=== PATIENT | female | born 1965 | race Caucasian/White ===

== ENCOUNTER 2020-02-24 08:24 | Outpatient (CLI) | payer OTHER, SELFPAY ==
--- NOTE | ~2020-02-24 | MM_ITS ---
EXAMINATION: MM screening rosalva BI w debo HISTORY: Screening mammogram, family history of breast cancer in her sister. TECHNIQUE: Craniocaudal and mediolateral oblique 3-D tomosynthesis images were obtained and synthetic 2-D images were generated. CAD analysis was submitted and interpreted. COMPARISON: 01/31/2019, 01/16/2018, 01/15/2017 BREAST PARENCHYMAL COMPOSITION: There are scattered areas of fibroglandular density. FINDINGS: There is no evidence of suspicious mass, calcification, or architectural distortion to sugg est malignancy in either breast. There has been no suspicious interval change. IMPRESSION: 1. No mammographic evidence of malignancy. 2. Recommend routine screening mammography in one year. BI-RADS Category 1: Negative Reviewed, dictated and finalized at location A. FRAZER
== END 2020-02-24 08:25 | disposition home or self-care (01) ==
LOC: ANHIMG 08:28
PROVIDERS: PCP Family Medicine; Visit Provider Obstetrics & Gynecology
DX: Z12.31 Encounter for screening mammogram for malignant neoplasm of breast (principal)
CPT/HCPCS: 77063; 77067

== ENCOUNTER 2022-04-21 09:25 | Outpatient (CLI) | payer OTHER, SELFPAY ==
--- NOTE | ~2022-04-21 | MM_ITS ---
EXAMINATION: MM screening rosalva BI w debo HISTORY: Screening mammogram, family history of breast cancer in her sister. TECHNIQUE: Craniocaudal and mediolateral oblique 3-D tomosynthesis images were obtained and synthetic 2-D images were generated. CAD analysis was submitted and interpreted. COMPARISON: 02/24/2020, 01/31/2019, 01/16/2018 BREAST PARENCHYMAL COMPOSITION: There are scattered areas of fibroglandular density. FINDINGS: RIGHT BREAST: An asymmetry is present in the middle/posterior third of the breast in line with the ni pple axis on the mediolateral oblique view. LEFT BREAST: No suspicious mass, calcification, or architectural distortion are identified to suggest malignancy. There has been no suspicious interval change. IMPRESSION: 1. Right breast asymmetry. 2. Additional mammographic views and possible breast ultrasound are recommended. BI-RADS Category 0: Incomplete: Needs additional imaging evaluation. Reviewed, dictated and finalized at location A. L MAIL CONTRACTOR IMPRESSION: 1. Right breast asymmetry. 2. Additional mammographic views and possible breast ultrasound are recommended . BI-RADS Category 0: Incomplete: Needs additional imaging evaluation.
== END 2022-04-21 09:26 | disposition home or self-care (01) ==
LOC: ANHIMG 09:26
PROVIDERS: PCP Family Medicine; Visit Provider Obstetrics & Gynecology
DX: Z12.31 Encounter for screening mammogram for malignant neoplasm of breast (principal); R92.8 Other abnormal and inconclusive findings on diagnostic imaging of breast
CPT/HCPCS: 77063; 77067

== ENCOUNTER 2022-05-16 12:15 | Outpatient (CLI) | payer OTHER, SELFPAY ==
--- NOTE | ~2022-05-16 | MMUS_ITS ---
EXAMINATION: MM diagnostic rosalva RT w debo, US breast RT complete HISTORY: Follow-up right breast asymmetry TECHNIQUE: Additional 3-D tomosynthesis images of the right breast were performed and synthetic 2-D i mages were generated. CAD analysis was submitted and interpreted. High resolution complete right kali st ultrasound was performed. COMPARISON: Comparison to multiple prior studies sequentially, with oldest reviewed study dated 01/04. BREAST PARENCHYMAL COMPOSITION: Breast composed of scattered areas of fibroglandular density FINDINGS: MAMMOGRAPHIC FINDINGS: There are no suspicious masses, calcifications or architectural distortion in the right breast to sug gest malignancy. ULTRASOUND: Complete US of all 4 quadrants of the right breast and retroareolar region was reviewed. Normal heter ogeneous echotexture without focal solid or cystic mass. IMPRESSION: 1. No evidence for malignancy in the right breast. 2. Routine yearly screening mammogram and regular clinical breast examination are recommended. BI-RADS Category 1: Negative Reviewed, dictated and finalized at location A. OFFICER IMPRESSION: 1. No evidence for malignancy in the right breast. 2. Routine yearly screening mammogram and regular clinical breast examination a re recommended. BI-RADS Category 1: Negative
== END 2022-05-16 12:16 | disposition home or self-care (01) ==
PROVIDERS: PCP Family Medicine; Visit Provider Obstetrics & Gynecology
DX: R92.8 Other abnormal and inconclusive findings on diagnostic imaging of breast (principal)
CPT/HCPCS: 76641; 77061; 77065; G0279

== ENCOUNTER 2023-05-22 09:19 | Outpatient (CLI) | payer BC, SELFPAY ==
--- NOTE | ~2023-05-22 | MM_ITS ---
EXAMINATION: MM screening rosalva BI w debo HISTORY: Screening mammogram TECHNIQUE: Craniocaudal and mediolateral oblique 3-D tomosynthesis images were obtained and synthetic 2-D images were generated. CAD analysis was submitted and interpreted. COMPARISON: 05/16/2022 diagnostic right mammogram and complete right breast ultrasound examination, re ported negative 04/21/2022, 02/24/2020 bilateral screening mammogram examinations BREAST PARENCHYMAL COMPOSITION: There are scattered areas of fibroglandular density. FINDINGS: There is no evidence of suspicious mass, calcification, or architectural distortion to sugg est malignancy in either breast. There has been no suspicious interval change. IMPRESSION: 1. No mammographic evidence of malignancy. 2. Recommend routine screening mammography in one year. BI-RADS Category 1: Negative Reviewed, dictated and finalized at location A. T SHIFT MANAGER
== END 2023-05-22 09:20 | disposition home or self-care (01) ==
PROVIDERS: PCP Family Medicine; Visit Provider Obstetrics & Gynecology
DX: Z12.31 Encounter for screening mammogram for malignant neoplasm of breast (principal)
CPT/HCPCS: 77063; 77067

== ENCOUNTER 2024-05-07 01:15 | Day surgery (SDC) | payer BC, SELFPAY ==
[2024-04-22 13:36] VITALS: BMI 26.6
[2024-05-07 08:11] VITALS: BP 129/80; PULSE 79; RESP 18; TEMP 36.3; O2SAT 98
--- NOTE | 2024-05-07 08:17 | WPDANESEPPF ---
Anes - Initial Pre Proc Eval Procedure: Operation Date: 05/07/24 09:30 Proposed Procedures p Screening Colonoscopy - Damien Monique MD Date/Time: 05/07/24 08:17 Surgeon: Damien Monique MD Pre Op Diagnosis: screening malignant neoplasm colon Patient Data Age: 59 Gender: F Height: 1.68 m Weight: 73.1 kg Last Vital Signs Temp 36.3 C L 05/07/24 08:11 Pulse 79 05/07/24 08:11 Resp 18 05/07/24 08:11 BP 129/80 05/07/24 08:11 Pulse Ox 98 05/07/24 08:11 O2 Del Method Room Air 05/07/24 08:11 Allergies Allergy/AdvReac Type Severity Reaction Status Date / Time No Known Allergies Allergy Verified 05/07/24 08:10 Home Medications ?Medication ?Instructions ?Recorded ?Confirmed ?Type No Home Medications 02/13/23 04/22/24 History Patient hx anesthesia problems: none Family hx anesthesia problems: none Results Review: All pre-operative results and documents have been reviewed as part of the pre-operative evaluation. [facility] Past Medical History Medical History IT band syndrome Left knee pain Hyperlipemia Anxiety Prediabetes Hepatitis C antibody test negative (05/16/17) Family History Family History Father Hypertension Family history of elevated blood lipids Family history of cardiovascular disease Mother Family history of chronic obstructive pulmonary disease Other No family history of cardiovascular disease Social History Social History Smoking status: Never smoker Alcohol intake: current Drinks per week: 1 Lack of Transportation: No Lack of Food: Never True Current Housing: I Have Housing Concerned About Future Housing: No Difficulty Paying Gas/Electric Bills: No Difficulty Paying for Meds: No Currently Unemployed: No Education: Master's Degree or Higher Difficulty w/ Childcare or Family Care: No Occupation/Education: occupation Gender identity (if verbalized by the patient): Female Anes - Eval Final PreProcedure Day of Procedure 05/07/24 08:17 Patient weight: overweight Heart: regular rate and rhythm Lungs: clear to auscultation Airway: Mallampati scale class II Last oral intake: >/= 8 hours ASA classification: II Emergent: no Anesthetic plan: proceed Anesthesia type and monitoring: general GIVS Results Review: All pre-operative results and documents have been reviewed as part of the pre-operative evaluation. Informed Consent: The patient's anesthetic plan and its attendant risks and benefits were discussed with the patient/family/POA. Questions were solicited and answers provided to the satisfaction of the patient/family/POA.
--- NOTE | 2024-05-07 08:18 | PM.HPGS ---
History of Present Illness History of Present Illness Consent: Risks, benefits, and alternatives have been discussed and questions answered. Patient agrees to proceed with procedure. Chief complaint: screening malignant neoplasm colon Narrative: Samantha Triana is a 59 year old female here for screening colonoscopy, last one 10 years ago Review of Systems Review of Systems: All systems reviewed & are unremarkable except as noted in HPI and below PMFSH Past Medical History Medical History IT band syndrome Left knee pain Hyperlipemia Anxiety Prediabetes Hepatitis C antibody test negative (05/16/17) Family History Family History Father Hypertension Family history of elevated blood lipids Family history of cardiovascular disease Mother Family history of chronic obstructive pulmonary disease Other No family history of cardiovascular disease Social History Social History Smoking status: Never smoker Alcohol intake: current Drinks per week: 1 Lack of Transportation: No Lack of Food: Never True Current Housing: I Have Housing Concerned About Future Housing: No Difficulty Paying Gas/Electric Bills: No Difficulty Paying for Meds: No Currently Unemployed: No Education: Master's Degree or Higher Difficulty w/ Childcare or Family Care: No Occupation/Education: occupation Gender identity (if verbalized by the patient): Female Meds Home Medications and Allergies Home Medications ?Medication ?Instructions ?Recorded ?Confirmed ?Type No Home Medications 02/13/23 04/22/24 History Allergies Allergy/AdvReac Type Severity Reaction Status Date / Time No Known Allergies Allergy Verified 05/07/24 08:10 Vital Signs Vital Signs - 24 hr 05/07/24 08:11 Temperature 97.3 F L Pulse Rate 79 Respiratory Rate 18 Blood Pressure 129/80 Pulse Oximetry 98 Oxygen Delivery Room Air Exam Const: General: comfortable and no acute distress HENMT: Face/Nose/Sinus: Normal nares present Eyes: General: appearance normal, both eyes and all related structures Neck: Neck: no JVD Resp: Auscultation: clear to auscultation bilaterally Cardio: Rate: regular rate Rhythm: regular rhythm GI: Inspection: non-distended GI Palp: Yes Soft to palpation Skin: General skin exam: normal color Neuro: General: gait normal Speech: normal speech Extrem: General: normal to inspection Psych: Mental Status: mental status grossly normal Assessment and Plan Assessment and plan (1) Screening for colon cancer: Code(s): Z12.11 - Encounter for screening for malignant neoplasm of colon Status: Acute Assessment and Plan: colonoscopy
[2024-05-07] MEDS: LACTATED RINGERS 1,000 ML 150 ML IV CONT (08:25)
[2024-05-07 08:38] VITALS: BP 90/44; PULSE 85; RESP 19; O2SAT 99
[2024-05-07 08:48] VITALS: BP 114/71; PULSE 74; RESP 17; O2SAT 98
[2024-05-07 08:58] VITALS: BP 108/72; PULSE 79; RESP 19; O2SAT 100
--- OUTSIDE RECORDS SUMMARY | 2024-05-08 21:04 | XMS_ITS | Encounter Summary ---
Author Organization [facility] Health Address [address] [address] Care Team Providers Care Pearl Stringer Name Role Phone Unavailable Primary Care Provider Unavailabl e Encounter Details Date Type Department Care Team (Late st Contact Info) Description 08/14/2018 Lab Requisition [facility] Care DermPath Lab [address] [place] [id number] Ankush Figueroa MD [address] [place] [address] Social History Tobacco Use Types Packs/Day Years Used Date Smoking Tobacco: Never Smokeless Tobacco: Never Sex and Gender Information Value Date Recorded Sex Assigned at Not on file Gender Identity Not on file Sexual Orientation Not on file documented as of this encounter Plan of Treatment Not on file documented as of this encounter Procedures Procedure Name Priority Date/Time Associated Diagnosis Comments DERMATOPATHOLOGY Routine 08/13/2018 12:0 0 AM CDT documented in this encounter Results * DERMATOPATHOLOGY (08/13/2018 12:00 AM CDT) Case Report Dermatopathology Report ? Case: [id number] ? Authorizing Provider: ??Ankush Figueroa MD ?Collected: ? 08/13/2018 12:00 AM ? Pathologist: ? Cherry Berger MD ? Received: ?08/14/2018 12:03 PM ? Specimens: ?? A) - Skin, top lateral right post shoulder ? B) - Skin, right upper lat back ? C) - Skin, left distal flexor forearm ? 9 2:32 PM CDT DERMATOPATHOLOGY LABORATORY Final Diagnosis Specimen A. SKIN, top lateral right post shoulder: LENTIGINOUS MELANOCYTIC NEVUS, COMPOUND TYPE, IRRITATED (COMPOUND MELANOCYTIC NEVUS WITH ARCHITECTURAL DISORDER) (D22.62) Specimen B. SKIN, right upper lat back: LENTIGINOUS MELANOCYTIC NEVUS, COMPOUND TYPE, IRRITATED (COMPOUND MELANOCYTIC NEVUS WITH ARCHITECTURAL DISORDER) (D22.5) Specimen C. SKIN, left distal flexor forearm: COMPOUND MELANOCYTIC NEVUS (D22.62) 9 2:32 PM T DERMATOPATHOLOGY LABORATORY Clinical History A-C: R/O dys nevus. 9 2:32 PM CDT DERMATOPATHOLOGY LABORATORY Gross Description Specimen A: Received is one formalin filled container labeled with the patient's name and designated top lateral right post shoulder. The specimen consists of a shave biopsy measuring [id number]. Jar 0. Specimen B: Received is one formalin filled container labeled with the patient's name and designated right upper lat back. The specimen consists of a shave biopsy measuring [id number]. Jar 0. Specimen C: Received is one formalin filled container labeled with the patient's name and designated left distal flexor forearm. The specimen consists of a shave biopsy measuring [id number]. Jar 0. 9 2:32 PM [facility] DERMATOPATHOLOGY LABORATORY Microscopic Description Specimen A. SKIN, top lateral right post shoulder: This is a compound nevus. There is melanin pigment in the stratum corneum. There is architectural disorder characterized by a lentiginous proliferation of melanocytes between irregular nevus nests of cells along the dermal epidermal junction. There is underlying fibroplasia of the papillary dermis. The intradermal component is bland in appearance and matures with depth. (Compound Glen's Nevus or Compound Dysplastic Nevus) Specimen B. SKIN, right upper lat back: This is a compound nevus. There is melanin pigment in the stratum corneum. There is architectural disorder characterized by a lentiginous proliferation of melanocytes between irregular nevus nests of cells along the dermal epidermal junction. There is underlying fibroplasia of the papillary dermis. The intradermal component is bland in appearance and matures with depth. (Compound Glen's Nevus or Compound Dysplastic Nevus) Specimen C. SKIN, left distal flexor forearm: There are nests of melanocytes at the dermal-epidermal junction and within the dermis. 2:32 PM T DERMATOPATHOLOGY LABORATORY Disclaimer An external and internal positive and negative controls are appropriate for the histochemical, immunohistochemical and immunofluorescence stain(s) in this case (if any), except where stated explicitly. The performance characteristics of the stain(s) cited in this report were developed and its performance characteristic determined by the Dermatopathology Laboratory at [facility], directed by Dr. Radha Berger. These tests need not be, and therefore are not, approved by the [place] Food and Drug Administration. The tests are used for clinical purposes. Billing Codes Specimen Charges Stain Charges 79024 15985 18618 1 1 1 9 2:32 PM CDT DERMATOPATHOLOGY LABORATORY Embedded Images 2:32 PM T DERMATOPATHOLOGY LABORATORY Pathology/Cytology TISSUE SPECIMEN FROM SKIN / Unknown 08/13/2018 08/14/2018 12:03 PM CDT Miscellaneous samples (specimen) TISSUE SPECIMEN FROM SKIN / Unknown 08/13/2018 08/14/2018 12:03 PM CDT Miscellaneous samples (specimen) TISSUE SPECIMEN FROM SKIN / Unknown 08/13/2018 08/14/2018 12:03 PM CDT Ankush Figueroa MD LAB - PATHOLOGY/CYTO LOGY ORDERABLES DERMATOPATHOLOGY LABORATORY [facility] - Department of Dermatology [address] [place] [address], 5th Floor Lab [address] [phone] documented in this encounter Visit Diagnoses Not on filedocumented in this encounter
--- OUTSIDE RECORDS SUMMARY | 2024-05-08 21:04 | XMS_ITS | Patient Health Summary ---
Author Organization [facility] Address [address] [place] [address] Care Team Providers Care Tear Down Matcher Name Role Phone Unavailable Primary Care Provider Unavailabl e Note from [facility] [place],non-owned Affiliates and Associated Physician Practices is amultiple site organization consisting of ambulatory clinics and hospital sitesin [place], [place], [place] and [place]. This disclosure is being madepursuant to the Care Everywhere program and may not contain all information available regarding this patient. Last updated 18.[facility] Allergies No known active allergies Medications * Be aware that medications may not be up to date on this document. Alwaysverify current medications with the patient. * benzonatate (TESSALON) 200 MG capsule(Started 04/22/2019) Take 1 capsule by mouth 3 times daily as needed for Cough Social History Tobacco Use Types Packs/Day Years Used Date Smoking Tobacco: Never Smokeless Tobacco: Never Sex and Gender Information Value Date Recorded Sex Assigned at Not on file Gender Identity Not on file Sexual Orientation Not on file Last Filed Vital Signs Vital Sign Reading Time Taken Comments Blood Pressure 126/88 04/22/2019 4:36 PM MITER SAW OPERATOR Pulse 72 04/22/2019 4:36 PM MITER SAW OPERATOR Temperature 37.2 ??C (99 ??F) 04/22/2019 4:36 PM MITER SAW OPERATOR Respiratory Rate 16 04/22/2019 4:36 PM MITER SAW OPERATOR Oxygen Saturation 97% 04/22/2019 4:36 PM MITER SAW OPERATOR Inhaled Oxygen Concentration - - Weight 72.6 kg (160 lb) 04/22/2019 4:36 PM MITER SAW OPERATOR Height 167.6 cm (5' 6 ) 04/22/2019 4:36 PM MITER SAW OPERATOR Body Mass Index 25.82 04/22/2019 4:36 PM MITER SAW OPERATOR Procedures * DERMATOPATHOLOGY(Performed 08/13/2018) * DERMATOPATHOLOGY(Performed 02/06/2017) * URINALYSIS AUTO - POINT OF CARE (AMB) STL(Performed 01/19/2017) Performed for Acute cystitis with hematuria * CULTURE URINE(Performed 01/19/2017) Performed for Acute cystitis with hematuria * DERMATOPATHOLOGY(Performed 11/08/2011) Results * DERMATOPATHOLOGY (08/13/2018 12:00 AM CDT) Only the most recent of3 resultswithin the time period is included. Case Report Dermatopathology Report ? Case: [id number] ? Authorizing Provider: ??Ankush Figueroa MD ?Collected: [...] distal flexor forearm: COMPOUND MELANOCYTIC NEVUS (D22.62) 2:32 PM [facility] DERMATOPATHOLOGY LABORATORY Clinical History A-C: R/O dys nevus. 2:32 PM [facility] DERMATOPATHOLOGY LABORATORY Gross Description Specimen A: Received is one formalin filled container labeled with the patient's name and designated top lateral right post shoulder. The specimen consists of a shave biopsy measuring [id number]. Jar 0. Specimen B: Received is one formalin filled container labeled with the patient's name and designated right upper lat back. The specimen consists of a shave biopsy measuring 5t2n5xx. Jar 0. Specimen C: Received is one formalin filled container labeled with the patient's name and designated left distal flexor forearm. The specimen consists of a shave biopsy measuring [id number]. Jar 0. 2:32 PM [facility] DERMATOPATHOLOGY LABORATORY Microscopic Description Specimen A. SKIN, [...] the dermal-epidermal junction and within the dermis. 9 2:32 PM CDT DERMATOPATHOLOGY LABORATORY Disclaimer An external and internal positive and negative controls are appropriate for the histochemical, immunohistochemical and immunofluorescence stain(s) in this case (if any), except where stated explicitly. The performance characteristics of the stain(s) cited in this report were developed and its performance characteristic determined by the Dermatopathology Laboratory at [facility], directed by Dr. Radha Berger. These tests need not be, and therefore are not, approved by the [place] Food and Drug Administration. The tests are used for clinical purposes. Billing Codes Specimen Charges Stain Charges 50272 25302 40343 1 1 1 9 2:32 PM CDT DERMATOPATHOLOGY LABORATORY Embedded Images 9 2:32 PM CDT DERMATOPATHOLOGY LABORATORY Pathology/Cytology TISSUE SPECIMEN FROM SKIN / Unknown 08/13/2018 08/14/2018 12:03 PM CDT Miscellaneous samples (specimen) TISSUE SPECIMEN FROM SKIN / Unknown 08/13/2018 08/14/2018 12:03 PM CDT Miscellaneous samples (specimen) TISSUE SPECIMEN FROM SKIN / Unknown 08/13/2018 08/14/2018 12:03 PM CDT Ankush Figueroa MD LAB - PATHOLOGY/CYTO LOGY ORDERABLES DERMATOPATHOLOGY LABORATORY [facility] - Department of Dermatology [address] [place] [address], 5th Floor Lab [address] [phone] * (ABNORMAL) URINALYSIS AUTO - POINT OF CARE (AMB) STL (01/19/2017 5:39 PM CDT) Clarity UA POCT clear Color UA POCT light yellow Leukocyte UA 15+ Negative Nitrite UA POCT negative Negative Urobilinogen UA 0.2 0.1 - 1.0 Protein UA POCT 15+ Negative pH UA 6.5 5.0 - 8.0 pH units Blood UA 5-10 Negative Specific Murdock UA POCT 1.010 1.002 - 1.030 Ketone UA negative Negative Bilirubin UA POCT negative Negative Glucose UA negative Negative Expiration Date 05/16/2018 Lot # [id number] QC Verified Yes Yes URINE / Unknown 01/19/2017 5 :39 PM CDT Penelope Kemp Baltazar FARM LOAN REPRESENTATIVE-CYBER SECURITY INSTRUCTOR LAB - POINT OF CARE ORDERABLES * CULTURE URINE (01/19/2017 5:37 PM CDT) Urine Culture Routine Final report [facility] ACCOUNT BILL Result 1 [facility] ACCOUNT BILL Comment: Culture shows less than 10,000 colony forming units of bacteria per milliliter of urine. This colony count is not generally considered to be clinically significant. Urine URINE SPECIMEN OBTAINED BY CLEAN CATCH PROCEDURE / Unknown 01/19/2017 5:37 PM CDT 01/19/2017 Narrative Resulting Agency Comment [facility] [address] ??[facility] [id number] Penelope Viridiana Ledesma FARM LOAN REPRESENTATIVE-CYBER SECURITY INSTRUCTOR LAB - MICROB IOLOGY ORDERABLES [facility] ACCOUNT BILL [address] [place] [phone]
--- OUTSIDE RECORDS SUMMARY | 2024-05-08 21:04 | XMS_ITS | Clinical Summary ---
Author Organization [facility] Address [address] [place] [address] Care Team Providers Care Chain Testing Machine Operator Name Role Phone Unavailable Primary Care Provider Unavailabl e Source Comments [facility],non-owned Affiliates and Associated Physician Practices is amultiple site organization consisting of ambulatory clinics and hospital sitesin [place], [place], [place] and [place]. This disclosure is being madepursuant to the Care Everywhere program and may not contain all information available regarding this patient. Last updated 18.[facility] Allergies No known active allergies Medications * Be aware that medications may not be up to date on this document. Alwaysverify current medications with the patient. Medication Sig Dispensed Refills Start Date End Date Status benzonatate (TESSALON) 200 MG capsule Take 1 capsule by mouth 3 times daily as needed for Cough 30 capsule 04/22/2019 Active Family History Medical History Relation Name Comments CAD (Coronary Artery Disease) Father COPD - Chronic Obstructive Pulmonary Disease Mother Relation Name Status Comments Father Mother Social History Tobacco Use Types Packs/Day Years Used Date Smoking Tobacco: Never Smokeless Tobacco: Never Sex and Gender Information Value Date Recorded Sex Assigned at Not on file Gender Identity Not on file Sexual Orientation Not on file Last Filed Vital Signs Vital Sign Reading Time Taken Comments Blood Pressure 126/88 04/22/2019 4:36 PM GUEST RELATIONS ASSOCIATE Pulse 72 04/22/2019 4:36 PM [employer]ATIONS ASSOCIATE Temperature 37.2 ??C (99 ??F) 04/22/2019 4:36 PM G[employer]ST RELATIONS ASSOCIATE Respiratory Rate 16 04/22/2019 4:36 PM GUEST RELATIONS ASSOCIATE Oxygen Saturation 97% 04/22/2019 4:36 PM GUEST RELATIONS ASSOCIATE Inhaled Oxygen Concentration - - Weight 72.6 kg (160 lb) 04/22/2019 4:36 PM GUEST RELATIONS ASSOCIATE Height 167.6 cm (5' 6 ) 04/22/2019 4:36 PM GUEST RELATIONS ASSOCIATE Body Mass Index 25.82 04/22/2019 4:36 PM GUEST RELATIONS ASSOCIATE Plan of Treatment Health Maintenance Due Date Last Done Comments COLOGUARD (AGES 45-75) - COL ON CA SCREENING 1963 COLON MONITORING 1963 COLONOSCOPY - COLON CA SCREENING 1963 CT COLONOGRAPHY - COLON CA SCREENING 1963 Colorectal Cancer Screening 1963 FIT - COLON CA SCREENING 1963 FLEX SIG - COLON CA SCREENING 1963 LIPID TESTING 1963 MAMMOGRAM 1963 PAP SMEAR 1963 HIV SCREENING 1978 HEPATITIS C SCREENING 01/03/1981 DTAP/TDAP/TD VACCINES (1 - Tdap) 1982 PNEUMOCOCCAL VACCINE 50+ (1 of 1 - PCV) 2013 ZOSTER VACCINE (1 of 2) 2013 SCREENING FOR DIABETES 04/22/2019 COVID-19 VACCINE ( - 2023-2 5 season) 2023 INFLUENZA VACCINE (#1) 2023 DEPRESSION SCREENING 04/16/2024 Respiratory Syncytial Virus (RSV) Vaccine Pt: or over 60 yrs (1 - 1-dose 75+ series) 2038 HEPATITIS B VACCINE Aged Out No longe r eligible based on patient's age to complete this topic HIB VACCINE Aged Out No longer eligi ble based on patient's age to complete this topic HPV VACCINE Aged Out No longer eligi ble based on patient's age to complete this topic MENINGOCOCCAL (Group B) VACCINE Aged Out No longer eligible based on patient's age to complete this topic MENINGOCOCCAL VACCINE Aged Out No jayden steve eligible based on patient's age to complete this topic PNEUMOCOCCAL VACCINE Aged Out No long er eligible based on patient's age to complete this topic KOBY TRIANA Personal/Family 1965 [address] [place] [address]
--- OUTSIDE RECORDS SUMMARY | 2024-05-08 21:04 | XMS_ITS | Referral Summary ---
Author Organization [facility] Address [address] [place] [address] Care Team Providers Care Cook Chief Name Role Phone Unavailable Primary Care Provider Unavailabl e Source Comments [facility],non-owned Affiliates and Associated Physician Practices is amultiple site organization consisting of ambulatory clinics and hospital sitesin [place], [place], [place] and [place]. This disclosure is being madepursuant to the Care Everywhere program and may not contain all information available regarding this patient. Last updated 18.[facility] Allergies No known active allergies Medications * Be aware that medications may not be up to date on this document. Alwaysverify current medications with the patient. Medication Sig Dispensed Refills Start Date End Date Status benzonatate (TESSALON) 200 MG capsule Take 1 capsule by mouth 3 times daily as needed for Cough 30 capsule 04/22/2019 Active Social History Tobacco Use Types Packs/Day Years Used Date Smoking Tobacco: Never Smokeless Tobacco: Never Sex and Gender Information Value Date Recorded Sex Assigned at Not on file Gender Identity Not on file Sexual Orientation Not on file Last Filed Vital Signs Vital Sign Reading Time Taken Comments Blood Pressure 126/88 04/22/2019 4:36 PM CHECKMAN Pulse 72 04/22/2019 4:36 PM CHECKMAN Temperature 37.2 ??C (99 ??F) 04/22/2019 4:36 PM CHECKMAN Respiratory Rate 16 04/22/2019 4:36 PM CHECKMAN Oxygen Saturation 97% 04/22/2019 4:36 PM CHECKMAN Inhaled Oxygen Concentration - - Weight 72.6 kg (160 lb) 04/22/2019 4:36 PM CHECKMAN Height 167.6 cm (5' 6 ) 04/22/2019 4:36 PM CHECKMAN Body Mass Index 25.82 04/22/2019 4:36 PM CHECKMAN Plan of Treatment Not on file KOBY TRIANA Personal/Family [address] [place] [id number]
== END 2024-05-07 09:05 | disposition home or self-care (01) ==
PROVIDERS: PCP Family Medicine; Visit Provider Internal Medicine Gastroenterology
PROC: 0DJD8ZZ Inspection of Lower Intestinal Tract, Via Natural or Artificial Opening Endoscopic (ICD-10-PCS; CPT 45378; principal; 2024-05-07 09:30)
DX: Z12.11 Encounter for screening for malignant neoplasm of colon (principal); K57.30 Diverticulosis of large intestine without perforation or abscess without bleeding; E78.5 Hyperlipidemia, unspecified; F41.9 Anxiety disorder, unspecified; R73.03 Prediabetes; Z87.39 Personal history of other diseases of the musculoskeletal system and connective tissue; Z82.49 Family history of ischemic heart disease and other diseases of the circulatory system
CPT/HCPCS: 45378; J2704; J7120

== ENCOUNTER 2024-06-12 08:06 | Outpatient (CLI) | payer BC, SELFPAY | END 2024-06-12 08:07 | disposition home or self-care (01) | LOC: ANHIMG 08:07 | PROVIDERS: PCP Family Medicine; Visit Provider Obstetrics & Gynecology | DX: Z12.31 Encounter for screening mammogram for malignant neoplasm of breast (principal) | CPT/HCPCS: 77063; 77067 ==